=== PATIENT | female | born 1955 | race Caucasian/White ===

== ENCOUNTER 2023-08-22 12:32 | Emergency (ER) | payer MEDICARE, OTHER ==
[2023-08-22 12:57] LABS: BASOPHILS ABSOLUTE AUTO 0.1 x10^3/uL (0.0-0.2); BASOPHILS PERCENT AUTO 0.5 % (0.2-1.2); EOSINOPHILS ABSOLUTE AUTO 0.2 x10^3/uL (0.0-0.5); EOSINOPHILS PERCENT AUTO 1.2 % (0.0-4.0); HEMATOCRIT 33.3 % (33.0-47.0); HEMOGLOBIN 10.6 g/dL (12.0-16.0); IMMATURE GRAN ABSOLUTE AUTO 0.06 x10^3/uL (0.00-0.07); LYMPHOCYTES ABSOLUTE AUTO 1.2 x10^3/uL (1.0-4.8); LYMPHOCYTES PERCENT AUTO 7.4 % (25.0-50.0); MEAN CORPUSCULAR HEMOGLOBIN 29.6 pg (26.0-32.0); MEAN CORPUSCULAR HGB CONC 31.8 g/dL (32.0-36.0); MONOCYTES PERCENT AUTO 6.6 % (2.0-11.0); NEUTROPHILS ABSOLUTE AUTO 13.1 x10^3/uL (1.8-7.7); NEUTROPHILS PERCENT AUTO 83.9 % (50.0-80.0); RED BLOOD CELL COUNT 3.58 x10^6/uL (4.00-5.50); WHITE BLOOD CELL COUNT,WBC 15.6 x10^3/uL (4.0-10.0)
[2023-08-22 13:10] LABS: PLATELET COUNT,PLT 740 x10^3/uL (130-400)
[2023-08-22 13:29] LABS: A/G RATIO 0.66; ALANINE AMINOTRANSFERASE,ALT 42 U/L (14-59); ALBUMIN 2.9 g/dL (3.4-5.0); ALKALINE PHOSPHATASE 250 U/L (46-116); ASPARTATE AMNIOTRANSFERASE,AST 28 U/L (15-37); BILIRUBIN TOTAL 0.5 mg/dL (0.2-1.0); BLOOD UREA NITROGEN,BUN 17 mg/dL (7-18); C-REACTIVE PROTEIN 12.42 mg/dL (<=0.50); CALCIUM 9.5 mg/dL (8.5-10.1); CARBON DIOXIDE,CO2 29 mmol/L (21-32); CHLORIDE,CL 100 mmol/L (98-107); CREATININE 0.9 mg/dL (0.55-1.02); GLUCOSE RANDOM 120 mg/dL (70-99); POTASSIUM,K 5.2 mmol/L (3.5-5.1); PRO B-TYPE NATRIUR PEPT,BNPPRO 2095 pg/mL (<=125); PROTEIN TOTAL,TP 7.3 g/dL (6.4-8.2); SODIUM,NA 137 mmol/L (136-145)
[2023-08-22 13:30] LABS: ANION GAP 13.2 mmol/L (5-15); ESTIMATED GFR 69 mL/min (>=60)
[2023-08-22] MEDS ORDERED: Iopamidol 755 Mg/ML 100 ML Bottle IVPUSH ONE (13:54)
[2023-08-22] MEDS ORDERED: Ondansetron 4 MG/2 ML SDV IVPUSH ONE (14:08)
== END 2023-08-22 15:38 | disposition home or self-care (01) ==
LOC: VM.ED 12:32
DX: I11.0 Hypertensive heart disease with heart failure (principal); I50.22 Chronic systolic (congestive) heart failure; E87.5 Hyperkalemia; E78.00 Pure hypercholesterolemia, unspecified; Z79.82 Long term (current) use of aspirin; Z79.899 Other long term (current) drug therapy; Z79.01 Long term (current) use of anticoagulants
CPT/HCPCS: 36415; 71046; 80053; 83880; 85025; 85379; 86140; 99285; Q9967

== ENCOUNTER 2024-05-10 14:59 | Inpatient (IN) | payer MEDICARE, OTHER ==
[2024-05-11] MEDS ORDERED: Simethicone 80 MG Tab.Chew PO PRN (16:50)
[2024-05-11] MEDS ORDERED: Melatonin 3 MG Tab PO PRN (16:50)
[2024-05-11] MEDS ORDERED: Methocarbamol 500 MG Tab PO PRN (16:50)
[2024-05-11] MEDS ORDERED: Lactulose Soln 10 GM/15 ML 30 ML UD Cup PO PRN (16:50)
[2024-05-11] MEDS ORDERED: Albuterol HFA 18 Gm Inhaler INH PRN (16:50)
[2024-05-11] MEDS ORDERED: Ondansetron 4 MG Tab.DIS PO PRN (16:54)
[2024-05-11] MEDS: oxyCODONE 5 MG Tab PO PRN (17:14)
[2024-05-11] MEDS: Diclofenac Sodium 1% Gel 100 GM Tube TOP SCH (17:15)
[2024-05-11] MEDS: Acetaminophen 500 MG Tab PO PRN (18:25)
[2024-05-11] MEDS: Metoprolol Tartrate 25 MG Tab PO SCH (20:25)
[2024-05-11] MEDS: atorvaSTATin 10 MG Tab PO SCH (20:27)
[2024-05-11] MEDS: Warfarin** 1 MG TABLET PO ONE (20:28)
[2024-05-12] MEDS: oxyCODONE 5 MG Tab PO PRN (06:12)
[2024-05-12 08:28] LABS: INR 1.5 (0.9-1.1); PROTHROMBIN TIME 15.3 SEC (8.9-11.5)
[2024-05-12] MEDS: Aspirin 81 MG Tab.EC PO SCH (09:06)
[2024-05-12] MEDS: buPROPion 150 MG Tab.ER PO SCH (09:07)
[2024-05-12] MEDS: Lidocaine 4% 1 each Patch TOP SCH (09:07)
[2024-05-12] MEDS: Triamcinolone Acetonide 0.1% Crm 15 GM Tube TOP SCH (09:08)
[2024-05-12] MEDS: Polyethylene Glycol 3350 Powder 17 GM Packet PO SCH (09:08)
[2024-05-12] MEDS: Enoxaparin 40 MG/0.4 ML Syringe SUBCUT SCH (12:31)
[2024-05-12] MEDS ORDERED: Warfarin** 1 MG TABLET PO SCH (20:00)
[2024-05-12] MEDS ORDERED: Warfarin 2 MG Tab PO SCH (20:00)
[2024-05-12] MEDS: Warfarin** 1 MG TABLET PO ONE (21:16)
[2024-05-13 08:08] LABS: HEMATOCRIT 29.2 % (33.0-47.0); HEMOGLOBIN 9.4 g/dL (12.0-16.0); MEAN CORPUSCULAR HEMOGLOBIN 30.5 pg (26.0-32.0); MEAN CORPUSCULAR HGB CONC 32.2 g/dL (32.0-36.0); MEAN CORPUSCULAR VOLUME 94.8 fL (78.0-93.0); RED BLOOD CELL COUNT 3.08 x10^6/uL (4.00-5.50)
[2024-05-13 08:22] LABS: INR 1.3 (0.9-1.1); PROTHROMBIN TIME 13.5 SEC (8.9-11.5)
[2024-05-13] MEDS: Warfarin 5 MG Tab PO ONE (20:13)
[2024-05-13] MEDS: Enoxaparin 80 MG/0.8 ML Syringe SUBCUT ONE (21:58)
[2024-05-14 07:40] LABS: BASOPHILS ABSOLUTE AUTO 0.1 x10^3/uL (0.0-0.2); BASOPHILS PERCENT AUTO 0.9 % (0.2-1.2); EOSINOPHILS ABSOLUTE AUTO 0.2 x10^3/uL (0.0-0.5); EOSINOPHILS PERCENT AUTO 2.5 % (0.0-4.0); IMMATURE GRAN ABSOLUTE AUTO 0.05 x10^3/uL (0.00-0.07); LYMPHOCYTES ABSOLUTE AUTO 0.9 x10^3/uL (1.0-4.8); MEAN CORPUSCULAR HEMOGLOBIN 30.8 pg (26.0-32.0); MEAN CORPUSCULAR HGB CONC 32.1 g/dL (32.0-36.0); MEAN CORPUSCULAR VOLUME 95.9 fL (78.0-93.0); MONOCYTES ABSOLUTE AUTO 0.5 x10^3/uL (0.0-0.8); MONOCYTES PERCENT AUTO 7.6 % (2.0-11.0); NEUTROPHILS ABSOLUTE AUTO 5.1 x10^3/uL (1.8-7.7); NEUTROPHILS PERCENT AUTO 75.3 % (50.0-80.0); PLATELET COUNT,PLT 520 x10^3/uL (130-400); RED BLOOD CELL COUNT 2.92 x10^6/uL (4.00-5.50); WHITE BLOOD CELL COUNT,WBC 6.8 x10^3/uL (4.0-10.0)
[2024-05-14 07:55] LABS: INR 1.4 (0.9-1.1); PROTHROMBIN TIME 13.6 SEC (8.9-11.5)
[2024-05-14 07:56] LABS: CALCIUM 9.3 mg/dL (8.5-10.1); CREATININE 0.9 mg/dL (0.55-1.02); EST CRCL DRUG DOSING (CG) 50.23 mL/min; POTASSIUM,K 4.5 mmol/L (3.5-5.1)
[2024-05-14 08:03] LABS: ANION GAP 8.5 mmol/L (5-15)
[2024-05-14] MEDS ORDERED: Warfarin 5 MG Tab PO ONE (08:31)
[2024-05-14] MEDS: Enoxaparin 80 MG/0.8 ML Syringe SUBCUT SCH (08:50)
[2024-05-14] MEDS: Furosemide 20 MG Tab PO SCH (11:00)
[2024-05-14] MEDS: Sodium Chloride 0.65% Nasal Spray 45 ML Bottle NAS PRN (18:05)
[2024-05-14] MEDS: Warfarin 2.5 MG, Warfarin 5 MG PO ONE (22:10)
[2024-05-15 07:22] LABS: INR 1.6 (0.9-1.1); PROTHROMBIN TIME 16.1 SEC (8.9-11.5)
[2024-05-15] MEDS ORDERED: Warfarin 2.5 MG Tab PO SCH (13:22)
[2024-05-15] MEDS: Warfarin 2.5 MG, Warfarin 5 MG PO ONE (13:36)
[2024-05-15] MEDS: Sennosides/Docusate Sodium 50-8.6 MG Tab PO PRN (20:34)
[2024-05-16 06:52] LABS: BASOPHILS PERCENT AUTO 0.5 % (0.2-1.2); EOSINOPHILS ABSOLUTE AUTO 0.1 x10^3/uL (0.0-0.5); EOSINOPHILS PERCENT AUTO 1.7 % (0.0-4.0); HEMOGLOBIN 9.2 g/dL (12.0-16.0); IMMATURE GRAN ABSOLUTE AUTO 0.02 x10^3/uL (0.00-0.07); LYMPHOCYTES ABSOLUTE AUTO 0.8 x10^3/uL (1.0-4.8); LYMPHOCYTES PERCENT AUTO 13.2 % (25.0-50.0); MEAN CORPUSCULAR HEMOGLOBIN 31.1 pg (26.0-32.0); MEAN CORPUSCULAR HGB CONC 32.9 g/dL (32.0-36.0); MEAN CORPUSCULAR VOLUME 94.6 fL (78.0-93.0); MONOCYTES ABSOLUTE AUTO 0.5 x10^3/uL (0.0-0.8); MONOCYTES PERCENT AUTO 8.9 % (2.0-11.0); NEUTROPHILS ABSOLUTE AUTO 4.6 x10^3/uL (1.8-7.7); NEUTROPHILS PERCENT AUTO 75.4 % (50.0-80.0); PLATELET COUNT,PLT 537 x10^3/uL (130-400); RED BLOOD CELL COUNT 2.96 x10^6/uL (4.00-5.50); WHITE BLOOD CELL COUNT,WBC 6.1 x10^3/uL (4.0-10.0)
[2024-05-16 07:14] LABS: CALCIUM 9.3 mg/dL (8.5-10.1); CREATININE 0.8 mg/dL (0.55-1.02); EST CRCL DRUG DOSING (CG) 56.5 mL/min; POTASSIUM,K 4.3 mmol/L (3.5-5.1)
[2024-05-16 07:16] LABS: INR 3.9 (0.9-1.1); PROTHROMBIN TIME 36.8 SEC (8.9-11.5)
[2024-05-16 07:21] LABS: ANION GAP 9.3 mmol/L (5-15)
[2024-05-16] MEDS: Warfarin 2 MG Tab PO SCH (21:07)
[2024-05-17 07:25] LABS: INR 2.8 (0.9-1.1); PROTHROMBIN TIME 26.6 SEC (8.9-11.5)
[2024-05-17] MEDS: Warfarin 5 MG Tab PO ONE (08:50)
[2024-05-18 06:55] LABS: BASOPHILS PERCENT AUTO 0.4 % (0.2-1.2); EOSINOPHILS ABSOLUTE AUTO 0.1 x10^3/uL (0.0-0.5); EOSINOPHILS PERCENT AUTO 1.3 % (0.0-4.0); HEMATOCRIT 27.8 % (33.0-47.0); HEMOGLOBIN 9.1 g/dL (12.0-16.0); IMMATURE GRAN ABSOLUTE AUTO 0.01 x10^3/uL (0.00-0.07); LYMPHOCYTES ABSOLUTE AUTO 0.9 x10^3/uL (1.0-4.8); MEAN CORPUSCULAR HEMOGLOBIN 30.5 pg (26.0-32.0); MEAN CORPUSCULAR HGB CONC 32.7 g/dL (32.0-36.0); MEAN CORPUSCULAR VOLUME 93.3 fL (78.0-93.0); MONOCYTES ABSOLUTE AUTO 0.6 x10^3/uL (0.0-0.8); NEUTROPHILS ABSOLUTE AUTO 5.4 x10^3/uL (1.8-7.7); NEUTROPHILS PERCENT AUTO 76.2 % (50.0-80.0); PLATELET COUNT,PLT 487 x10^3/uL (130-400); RED BLOOD CELL COUNT 2.98 x10^6/uL (4.00-5.50); WHITE BLOOD CELL COUNT,WBC 7.1 x10^3/uL (4.0-10.0)
[2024-05-18 07:07] LABS: CREATININE 0.8 mg/dL (0.55-1.02); EST CRCL DRUG DOSING (CG) 56.5 mL/min; POTASSIUM,K 4.1 mmol/L (3.5-5.1)
[2024-05-18 07:10] LABS: INR 2.7 (0.9-1.1); PROTHROMBIN TIME 25.9 SEC (8.9-11.5)
[2024-05-18 07:16] LABS: ANION GAP 9.1 mmol/L (5-15)
[2024-05-18] MEDS ORDERED: Warfarin 5 MG Tab PO SCH (21:00)
== END 2024-05-18 09:45 | disposition home or self-care (01) | DRG 948 ==
LOC: VM.MS 05-11 15:20
PROVIDERS: ADMIT Internal Medicine; ATTEND Internal Medicine
DX: R53.1 Weakness (principal); J98.11 Atelectasis; I25.10 Atherosclerotic heart disease of native coronary artery without angina pectoris; E78.00 Pure hypercholesterolemia, unspecified; H91.90 Unspecified hearing loss, unspecified ear; M81.0 Age-related osteoporosis without current pathological fracture; F32.A Depression, unspecified; N18.32 Chronic kidney disease, stage 3b; D63.1 Anemia in chronic kidney disease; Z95.2 Presence of prosthetic heart valve; Z79.01 Long term (current) use of anticoagulants; Z86.711 Personal history of pulmonary embolism; Z79.82 Long term (current) use of aspirin; Z79.899 Other long term (current) drug therapy; Z79.51 Long term (current) use of inhaled steroids; Z90.49 Acquired absence of other specified parts of digestive tract; Z98.51 Tubal ligation status; Z98.890 Other specified postprocedural states; Z87.891 Personal history of nicotine dependence
CPT/HCPCS: 36415; 80048; 82728; 85025; 85027; 85610; 95851-GO; 97110-GP; 97116-GP; 97161-GP; 97165-GO; 97535-GO; A9270-GY; J1650

== ENCOUNTER 2024-06-09 08:10 | Emergency (ER) | payer MEDICARE, OTHER ==
[2024-06-09] MEDS: Oxymetazoline 0.05% Nasal Spray 30 ML Bottle ONE (08:15)
[2024-06-09 08:42] LABS: BASOPHILS PERCENT AUTO 0.5 % (0.2-1.2); EOSINOPHILS ABSOLUTE AUTO 0.1 x10^3/uL (0.0-0.5); EOSINOPHILS PERCENT AUTO 1.9 % (0.0-4.0); HEMATOCRIT 32.4 % (33.0-47.0); HEMOGLOBIN 10.5 g/dL (12.0-16.0); IMMATURE GRAN ABSOLUTE AUTO 0.01 x10^3/uL (0.00-0.07); LYMPHOCYTES ABSOLUTE AUTO 1.2 x10^3/uL (1.0-4.8); LYMPHOCYTES PERCENT AUTO 19.5 % (25.0-50.0); MEAN CORPUSCULAR HEMOGLOBIN 30.1 pg (26.0-32.0); MEAN CORPUSCULAR HGB CONC 32.4 g/dL (32.0-36.0); MEAN CORPUSCULAR VOLUME 92.8 fL (78.0-93.0); MONOCYTES ABSOLUTE AUTO 0.4 x10^3/uL (0.0-0.8); MONOCYTES PERCENT AUTO 6.2 % (2.0-11.0); NEUTROPHILS ABSOLUTE AUTO 4.5 x10^3/uL (1.8-7.7); NEUTROPHILS PERCENT AUTO 71.7 % (50.0-80.0); PLATELET COUNT,PLT 332 x10^3/uL (130-400); RED BLOOD CELL COUNT 3.49 x10^6/uL (4.00-5.50); WHITE BLOOD CELL COUNT,WBC 6.3 x10^3/uL (4.0-10.0)
[2024-06-09 09:03] LABS: INR 1.6 (0.9-1.1); PROTHROMBIN TIME 16.1 SEC (8.9-11.5); PTT,PARTIAL THROMBOPLSTIN TIME 34.9 SEC (21.9-33.8)
== END 2024-06-09 10:45 | disposition home or self-care (01) ==
LOC: VM.ED 08:10
DX: R04.0 Epistaxis (principal); I25.10 Atherosclerotic heart disease of native coronary artery without angina pectoris; E78.00 Pure hypercholesterolemia, unspecified; Z90.49 Acquired absence of other specified parts of digestive tract; Z79.82 Long term (current) use of aspirin; Z79.899 Other long term (current) drug therapy
CPT/HCPCS: 30901; 30903; 36415; 85025; 85610; 85730; 99283; A9270